=== PATIENT | male | born 1965 | race Caucasian/White ===

== ENCOUNTER 2021-03-19 10:43 | Emergency (ER) | payer OTHER, SELFPAY ==
[2021-03-19 10:58] VITALS: BP 127/85; PULSE 81; RESP 16; TEMP 36.9; O2SAT 97
--- NOTE | 2021-03-19 11:32 | ED.SKABFB ---
HPI - Skin/Abscess/Foreign Bdy General Chief complaint: Skin/Abscess/Foreign Body Stated complaint: Rash Time Seen by Provider: 03/19/21 11:13 Source: patient and RN notes reviewed Mode of arrival: ambulatory Limitations: no limitations History of Present Illness HPI narrative: Patient presents today complaint of a 4-week history of a rash to his chest, abdomen, neck. The rash intermittently itches profusely. He has been sporadically applying Lotrimin, which does help with the itching when he applies it, but states it continues to spread. MD complaint: rash Related Data Home Medications Medication Instructions Recorded Confirmed amlodipine 10 mg PO DAILY 03/19/21 03/19/21 losartan 100 mg PO DAILY 03/19/21 03/19/21 meloxicam 15 mg PO DAILY 03/19/21 03/19/21 potassium chloride [Klor-Con M20] 20 meq PO DAILY 03/19/21 03/19/21 pravastatin 10 mg PO DAILY 03/19/21 03/19/21 testosterone 1.62 mg TRANSDERMAL 03/19/21 triamterene-hydrochlorothiazid 37.5 cap PO DAILY 03/19/21 03/19/21 Allergies Allergy/AdvReac Type Severity Reaction Status Date / Time No Known Allergies Allergy Verified 03/19/21 11:04 Review of Systems Review of Systems: CONSTITUTIONAL: Denies body aches, fever, chills, or sweats. EYES: Denies visual changes, redness, or discharge. ENT: Denies rhinorrhea, congestion, sore throat, or otalgia. CARDIOVASCULAR: Denies chest pain, palpitations, or edema. RESPIRATORY: Denies cough or dyspnea. GASTROINTESTINAL: Denies abdominal pain, nausea, vomiting, or diarrhea. GENITOURINARY: Denies dysuria or hematuria. SKIN: Denies wounds.+ Pruritic rash MUSCULOSKELETAL: Denies back pain, joint pain, or myalgia. NEUROLOGIC: Denies headache, numbness, tingling, or weakness. PSYCH: Denies depression or anxiety. [facility] Past Medical History Medical History (Updated 03/19/21 @ 11:39 by Fabby Sanchez, BUSINESS CHANGE MANAGER, [place]) Hypercholesterolemia Hypertension Comments At time of signature, I have reviewed and agree with nursing past medical, surgical, social and family history unless otherwise noted. Please see nursing chart for further information. There is no relevant family history pertinent to the presenting complaint Exam Narrative: GENERAL: Well-appearing, well-nourished, and in no acute distress. HEAD: Normocephalic, atraumatic. EYES: EOMI. No redness or drainage. Conjunctivae normal. ENT: Mucous membranes pink and moist. NECK: Normal AROM. CHEST: No respiratory distress. EXTREMITIES: Normal range of motion. No edema. SKIN: Warm, dry. Capillary refill normal. Normal skin turgor. Several patches of erythematous papular rash to chest, left lateral abdomen, around the umbilicus, into the bilateral neck. Nontender to palpation. No induration. No signs of bacterial infection. NEURO: No focal deficits. Alert and oriented x3. Gait steady. PSYCH: Normal affect. No signs of depression or anxiety. Course Vital Signs Vital signs: Vital Signs Temperature 98.5 F 03/19/21 10:58 Pulse Rate 81 03/19/21 10:58 Respiratory Rate 16 03/19/21 10:58 Blood Pressure 127/85 03/19/21 10:58 Pulse Oximetry 97 03/19/21 10:58 Temperature 98.5 F 03/19/21 10:58 Pulse Rate 81 03/19/21 10:58 Respiratory Rate 16 03/19/21 10:58 Blood Pressure 127/85 03/19/21 10:58 Pulse Oximetry 97 03/19/21 10:58 Reviewed. Pt has been instructed to follow up with his PCP regarding his elevated blood pressure today. MDM - Skin/Abscess/Foreign Bdy Differential Diagnosis Differential diagnosis: Likely viral exanthem, urticaria, cellulitis, eczema, impetigo, contact dermatitis and other (Tinea) Critical Care Time Critical Care Time Critical Care Time: No Discharge Plan Discharge Clinical Impression: Tinea corporis Patient Disposition: Home, Self-Care Condition: Stable Instructions: Tinea Corporis (ED) Additional Instructions: Your symptoms are likely due to a fungal infection in your skin. Please mi
== END 2021-03-19 11:43 | disposition home or self-care (01) ==
PROVIDERS: Emergency Provider Nurse Practitioner; PCP Internal Medicine
DX: B35.4 Tinea corporis (principal); E78.00 Pure hypercholesterolemia, unspecified; I10 Essential (primary) hypertension
CPT/HCPCS: 99211; G0463